=== PATIENT | male | born 1975 | race Caucasian/White ===

== ENCOUNTER 2017-03-04 00:32 | Inpatient (IN) | payer MEDICAID ==
[~2017-03-04] VITALS: Ht 177.8 cm; Wt 85.9 kg
[2017-03-04] MEDS ORDERED: LISI-661 PO (00:56)
[2017-03-04 01:17] LABS: BASOPHILS # (AUTO) 0.04 K/uL (0.00-0.20); BASOPHILS % (AUTO) 0.5 % (0.0-2.0); EOSINOPHILS % (AUTO) 1.07 % (1.0-6.0); HEMATOCRIT 45.4 % (41-53); HEMOGLOBIN 15.1 g/dL (13.5-17.5); LYMPHOCYTES # (AUTO) 2.8 K/uL (1.0-4.8); LYMPHOCYTES % (AUTO) 29.4 % (22.0-44.0); MEAN CORPUSCULAR HEMOGLOBIN 28.3 pg (26.0-34.0); MEAN CORPUSCULAR HGB CONC 33.3 G/dL (31.0-37.0); MEAN CORPUSCULAR VOLUME 85 fL (80-100); MONOCYTES # (AUTO) 0.7 K/uL (0.1-1.0); MONOCYTES % (AUTO) 7.1 % (2.0-9.0); NEUTROPHILS # (AUTO) 5.8 K/uL (1.8-7.7); PLATELET COUNT (AUTO) 378 K/uL (150-450); RED BLOOD CELL COUNT(AUTO) 5.35 MIL/uL (4.50-5.90); RED CELL DISTRIBUTION WIDTH 13.3 % (11.5-14.5); WHITE BLOOD COUNT (AUTO) 9.3 K/uL (4.5-11.0)
[2017-03-04 01:27] LABS: ANION GAP 7 mmol/L (8-16); CARBON DIOXIDE 29 mmol/L (22-29); CHLORIDE 100 mmol/L (98-107); CREATININE 1.31 mg/dL (0.60-1.30); GLOMERULAR FILTR. RATE CALC 60 mL/min (>60); POTASSIUM 3.7 mmol/L (3.5-5.1); SODIUM SERUM 136 mmol/L (136-145); UREA NITROGEN, BLOOD 12 mg/dL (7-18)
[2017-03-04 01:52] LABS: ALANINE AMINOTRANSFERASE 24 U/L (12-78); ALBUMIN 3.9 g/dL (3.4-5.0); ASPARTATE AMINOTRANSFERASE 18 U/L (15-37); BILIRUBIN,TOTAL 0.3 mg/dL (0.1-1.0); CREATINE KINASE MB 1.6 ng/mL (0-5); CREATINE KINASE, TOTAL 233 U/L (39-308); TOTAL PROTEIN, SERUM 7.5 g/dL (6.4-8.2)
[2017-03-04] MEDS ORDERED: ASPIRIN 325 MG TABLET PO ONE (04:15)
[2017-03-04] MEDS ORDERED: NITROGLYCERIN 0.4 MG SUBLINGUAL TABLET #25 SL ONE (04:15)
[2017-03-04] MEDS ORDERED: ONDANSETRON HCL 4 MG/2 ML VIAL IVP ONE (04:15)
[2017-03-04] MEDS ORDERED: NITROGLYCERIN 2% (1 GM=INCH) PACKET TP ONE ×2 (05:30→08:00)
[2017-03-04] MEDS ORDERED: 0.9% SODIUM CHLORIDE 10 ML SYRINGE IVP PRN (06:15)
[2017-03-04] MEDS ORDERED: ACETAMINOPHEN 325 MG TABLET PO PRN ×2 (06:15→16:30)
[2017-03-04] MEDS ORDERED: ONDANSETRON HCL 4 MG/2 ML VIAL IVP PRN ×2 (06:15→16:30)
[2017-03-04 08:11] VITALS: BP 137/88
[2017-03-04 11:11] VITALS: BP 131/77
[2017-03-04] MEDS ORDERED: PNEUMOCOCCAL VACCINE POLYVALENT 0.5 ML VIAL [PPSV23] IM ONE (12:15)
[2017-03-04] MEDS ORDERED: INFLUENZA VIRUS VACCINE QVS 2017-18 (3YR+)/PF 60 MCG/0.5 ML SYRINGE IM ONE (12:15)
[2017-03-04 15:13] VITALS: BP 122/67
[2017-03-04] MEDS ORDERED: IPRATROPIUM BROMIDE 0.5 MG/2.5 ML NEB SOLUTION NEB PRN (16:30)
[2017-03-04] MEDS ORDERED: MAGNESIUM HYDROXIDE SUSPENSION 30 ML UDCUP PO PRN (16:30)
[2017-03-04] MEDS ORDERED: HYDROCODONE/ACETAMINOPHEN 5-325 MG TABLET PO PRN (16:30)
[2017-03-04] MEDS ORDERED: ZOLPIDEM TARTRATE 10 MG TABLET PO PRN (16:30)
[2017-03-04] MEDS ORDERED: MORPHINE SULFATE 2 MG/ML SYRINGE IVP PRN (16:30)
[2017-03-04] MEDS: NITROGLYCERIN 2% (1 GM=INCH) PACKET TP SCH ×2 (17:41→23:21)
[2017-03-04 19:52] VITALS: BP 136/85
[2017-03-04] MEDS: DOCUSATE SODIUM 100 MG CAPSULE PO SCH (19:58)
[2017-03-04 23:22] VITALS: BP 126/90
[2017-03-05] VITALS (8 sets, daily range): BP systolic 114–155; BP diastolic 76–110
[2017-03-05] MEDS: NITROGLYCERIN 2% (1 GM=INCH) PACKET TP SCH ×2 (05:05→12:00)
[2017-03-05 07:00] LABS: CHOL/HDL RATIO 5.2 (4.2-7.3)
[2017-03-05] MEDS ORDERED: LISINOPRIL 10 MG TABLET PO SCH (09:00)
[2017-03-05] MEDS ORDERED: ASPIRIN 81 MG CHEWABLE TABLET PO SCH (09:00)
[2017-03-05] MEDS ORDERED: PANTOPRAZOLE SODIUM 40 MG/VIAL IVP SCH (09:00)
[2017-03-05] MEDS: DOCUSATE SODIUM 100 MG CAPSULE PO SCH (09:04)
[2017-03-05] MEDS ORDERED: LISI-662 PO (14:43)
[2017-03-06] MEDS ORDERED: LISINOPRIL 10 MG TABLET PO SCH (09:00)
== END 2017-03-05 17:20 | disposition home or self-care (01) | DRG 203 ==
LOC: EMS 00:34 → 5S 06:31
PROVIDERS: ADMIT Hospitalist; ATTEND Hospitalist
PROC: 3E0234Z Introduction of Serum, Toxoid and Vaccine into Muscle, Percutaneous Approach (ICD-10-PCS; principal; 2017-03-04)
DX: R07.9 Chest pain, unspecified (principal); I10 Essential (primary) hypertension; Z23 Encounter for immunization; E78.5 Hyperlipidemia, unspecified
CPT/HCPCS: 90471; 93005; 93017; 93306; 96374; 99285; C9113; J2405

== ENCOUNTER 2021-08-31 23:18 | Emergency (ER) | payer SELFPAY ==
[~2021-08-31] VITALS: Ht 177.8 cm; Wt 96.8 kg
[~2021-08-31 23:18] MED LIST: LISI-894 PO
[2021-09-01] MEDS ORDERED: PERTUSS(ACELL),DIPH,TET VAC/PF 0.5 ML SYRINGE IM. ONE (02:15)
[2021-09-01 02:25] VITALS: BP 150/110
== END 2021-09-01 03:49 | disposition home or self-care (01) ==
LOC: EMS 23:25
DX: I10 Essential (primary) hypertension (principal); G89.29 Other chronic pain; M54.2 Cervicalgia; E78.00 Pure hypercholesterolemia, unspecified; Z98.890 Other specified postprocedural states
CPT/HCPCS: 99283; Z7502

== ENCOUNTER 2023-06-07 22:53 | Inpatient (IN) | payer MEDICAID ==
[~2023-06-07] VITALS: Ht 175.3 cm; Wt 95.0 kg
[2023-06-08 00:09] LABS: BASOPHILS % (AUTO) 0.2 % (0.0-2.0); EOSINOPHILS % (AUTO) 0 % (1.0-6.0); HEMATOCRIT 45.5 % (41-53); HEMOGLOBIN 14.7 g/dL (13.5-17.5); LYMPHOCYTES # (AUTO) 1.4 K/uL (1.0-4.8); MEAN CORPUSCULAR HEMOGLOBIN 27.4 pg (26.0-34.0); MEAN CORPUSCULAR HGB CONC 32.4 G/dL (31.0-37.0); MEAN CORPUSCULAR VOLUME 85 fL (80-100); MONOCYTES # (AUTO) 1.2 K/uL (0.1-1.0); MONOCYTES % (AUTO) 5.1 % (2.0-9.0); NEUTROPHILS # (AUTO) 20.2 K/uL (1.8-7.7); PLATELET COUNT (AUTO) 425 K/uL (150-450); RED BLOOD CELL COUNT(AUTO) 5.38 MIL/uL (4.50-5.90); RED CELL DISTRIBUTION WIDTH 14.4 % (11.5-14.5); WHITE BLOOD COUNT (AUTO) 22.7 K/uL (4.5-11.0)
[2023-06-08 00:17] LABS: NEUTROPHILS % (AUTO) 88.7 % (40.0-70.0)
[2023-06-08 00:18] LABS: ANION GAP 12 mmol/L (8-16); CARBON DIOXIDE 26 mmol/L (22-29); CHLORIDE 102 mmol/L (98-107); CREATININE 1.15 mg/dL (0.60-1.30); GLOMERULAR FILTR. RATE CALC > 60 mL/min (>60); GLUCOSE,RANDOM 119 mg/dL (70-110); POTASSIUM 3.8 mmol/L (3.5-5.1); SODIUM SERUM 140 mmol/L (136-145); UREA NITROGEN, BLOOD 18 mg/dL (7-18)
[2023-06-08 00:24] LABS: ALANINE AMINOTRANSFERASE 27 U/L (12-78); ALBUMIN 4.5 g/dL (3.4-5.0); ALKALINE PHOSPHATASE 86 U/L (46-116); ASPARTATE AMINOTRANSFERASE 20 U/L (15-37); BILIRUBIN,TOTAL 0.2 mg/dL (0.1-1.0); LIPASE 47 U/L (16-77); TOTAL PROTEIN, SERUM 8.4 g/dL (6.4-8.2)
[2023-06-08] MEDS ORDERED: ONDANSETRON HCL 4 MG/2 ML VIAL IVP ONE (00:30)
[2023-06-08] MEDS ORDERED: SODIUM CHLORIDE 0.9% 1,000 ML IV ONE ×2 (00:30→11:45)
[2023-06-08 00:38] LABS: ALCOHOL, BLOOD (SERUM) < 3 mg/dL (0-10)
[2023-06-08] MEDS ORDERED: KETOROLAC TROMETHAMINE 30 MG/ML VIAL IVP ONE (00:45)
[2023-06-08 01:20] LABS: COVID AG,FIA SOURCE NASAL SWAB
[2023-06-08] MEDS ORDERED: IOHEXOL 350 MG/ML 100 ML VIAL ONE (01:28)
[2023-06-08] MEDS ORDERED: SODIUM CHLORIDE 0.9% 100 ML ONE (01:28)
[2023-06-08 01:40] LABS: LACTIC ACID 1.7 mmol/L (0.4-2.0)
[2023-06-08 01:45] LABS: INFLUENZA TYPE A NEGATIVE FOR TYPE A (NEGATIVE); INFLUENZA TYPE B NEGATIVE FOR TYPE B (NEGATIVE); SARS-COV2 (COVID) ANTIGEN,FIA Negative (Negative)
[2023-06-08] MEDS ORDERED: PIPERACILLIN/TAZO 3.375 GM/D5W 50 ML IV ONE (04:00)
[2023-06-08] MEDS ORDERED: SODIUM CHLORIDE 0.9% 2,850 ML IV ONE (04:15)
[2023-06-08 05:39] LABS: APPEARANCE,URINE CLEAR (CLEAR); BILIRUBIN,URINE NEGATIVE (NEGATIVE); COLOR,URINE LIGHT YELLOW (YELLOW); GLUCOSE, URINE (UA) NEGATIVE (NEGATIVE); KETONES,URINE NEGATIVE (NEGATIVE); LEUKOCYTE ESTERASE ,URINE NEGATIVE (NEGATIVE); NITRATE,URINE NEGATIVE (NEGATIVE); OCCULT BLOOD,URINE TRACE (NEGATIVE); PH,URINE 5.5 (5.0-8.0); PROTEIN,URINE TRACE mg/dL (NEGATIVE); UROBILINOGEN,URINE <=1.0 mg/dL (<=1.0)
[2023-06-08 06:11] LABS: BACTERIA,URINE None Seen /HPF (None Seen); RBC,URINE 0-2 /HPF (0-2); SQUAMOUS EPITHELIAL CELL,UR None Seen /LPF (None Seen); WBC,URINE None Seen /HPF (0-5)
[2023-06-08] MEDS ORDERED: ACETAMINOPHEN 325 MG TABLET PO PRN ×2 (08:45→11:45)
[2023-06-08] MEDS ORDERED: 0.9% SODIUM CHLORIDE 10 ML SYRINGE IVP PRN (08:45)
[2023-06-08] MEDS ORDERED: ONDANSETRON HCL 4 MG/2 ML VIAL IVP PRN ×2 (08:45→11:45)
[2023-06-08 09:00] VITALS: BP 144/67; PULSE 78; RESP 20; TEMP 98
[2023-06-08] MEDS ORDERED: IOHEXOL 240 MG/ML 20 ML VIAL ONE (09:25)
[2023-06-08] MEDS ORDERED: SODIUM CL IRRIG SOLN BAG 3,000 ML IRRIG ONE ×2 (09:25→09:28)
[2023-06-08 09:49] VITALS: BP 144/67; PULSE 78; RESP 20; TEMP 98; O2SAT 99
[2023-06-08] MEDS ORDERED: CeFAZolin SODIUM 1 GM VIAL IM ONE (10:15)
[2023-06-08] MEDS ORDERED: FentaNYL CITRATE PF 100 MCG/2 ML VIAL IVP PRN (10:45)
[2023-06-08] MEDS ORDERED: CeFAZolin 2 GM/DEXTROSE 50 ML IV ONE (11:00)
[2023-06-08] MEDS ORDERED: HYDROCODONE/ACETAMINOPHEN 5-325 MG TABLET PO PRN ×3 (11:30→11:45)
[2023-06-08] MEDS ORDERED: ZOLPIDEM TARTRATE 5 MG TABLET PO PRN (11:45)
[2023-06-08] MEDS ORDERED: MORPHINE SULFATE 2 MG/ML SYRINGE IVP PRN (11:45)
[2023-06-08] MEDS ORDERED: MAGNESIUM HYDROXIDE SUSPENSION 30 ML UDCUP PO PRN (11:45)
[2023-06-08] MEDS ORDERED: BISACODYL 10 MG RECTAL RECTAL SUPPOSITORY PR PRN (11:45)
[2023-06-08] MEDS: TAMSULOSIN HCL 0.4 MG CAPSULE PO SCH (12:44)
[2023-06-08] MEDS: IBUPROFEN 600 MG TABLET PO SCH ×3 (12:44→23:49)
[2023-06-08] MEDS: OXYBUTYNIN CHLORIDE 5 MG ER TABLET PO SCH (12:45)
[2023-06-08] MEDS ORDERED: MAG HYDROX/ALUMINUM HYD/SIMETH 30 ML SUSPENSION UDCUP PO PRN (15:30)
[2023-06-08] MEDS: PHENAZOPYRIDINE HCL 200 MG TABLET PO SCH ×2 (16:49→20:36)
[2023-06-08] MEDS: HEPARIN SODIUM,PORCINE 5,000 UNITS/ML VIAL SQ SCH ×2 (16:50→23:49)
[2023-06-08 16:53] VITALS: BP 133/93; PULSE 90; RESP 20; TEMP 98
[2023-06-08] MEDS: OXYGEN THERAPY IH SCH (20:00)
[2023-06-08 20:14] VITALS: BP 133/84; PULSE 99; RESP 20; TEMP 98.5
[2023-06-08] MEDS: DOCUSATE SODIUM 100 MG CAPSULE PO SCH (20:36)
[2023-06-08] MEDS: CeFAZolin 1 GM/DEXTROSE 50 ML IV SCH (21:53)
[2023-06-09] MEDS ORDERED: INFLUENZA VIRUS VACCINE QVS 2023-24 (6MO+)/PF 60 MCG/0.5 ML SYRINGE IM. ONE (01:45)
[2023-06-09] MEDS ORDERED: PNEUMOCOCCAL VACCINE POLYVALENT 0.5 ML SYRINGE [PPSV23] IM. ONE (01:45)
[2023-06-09 05:17] VITALS: BP 130/79; PULSE 75; RESP 20; TEMP 97.8
[2023-06-09] MEDS: IBUPROFEN 600 MG TABLET PO SCH ×4 (05:49→23:42)
[2023-06-09 07:00] LABS: BASOPHILS % (AUTO) 0.2 % (0.0-2.0); EOSINOPHILS % (AUTO) 0.1 % (1.0-6.0); HEMATOCRIT 35.2 % (41-53); HEMOGLOBIN 12.2 g/dL (13.5-17.5); LYMPHOCYTES # (AUTO) 2.2 K/uL (1.0-4.8); MEAN CORPUSCULAR HEMOGLOBIN 29.1 pg (26.0-34.0); MEAN CORPUSCULAR HGB CONC 34.6 G/dL (31.0-37.0); MEAN CORPUSCULAR VOLUME 84 fL (80-100); MONOCYTES # (AUTO) 0.6 K/uL (0.1-1.0); MONOCYTES % (AUTO) 6.5 % (2.0-9.0); NEUTROPHILS # (AUTO) 6.1 K/uL (1.8-7.7); NEUTROPHILS % (AUTO) 68.2 % (40.0-70.0); PLATELET COUNT (AUTO) 334 K/uL (150-450); RED BLOOD CELL COUNT(AUTO) 4.18 MIL/uL (4.50-5.90); RED CELL DISTRIBUTION WIDTH 13.9 % (11.5-14.5)
[2023-06-09] MEDS ORDERED: FentaNYL CITRATE PF 100 MCG/2 ML VIAL IVP ONE (07:17)
[2023-06-09 07:23] LABS: ALANINE AMINOTRANSFERASE 18 U/L (12-78); ALBUMIN 3.2 g/dL (3.4-5.0); ALKALINE PHOSPHATASE 66 U/L (46-116); ANION GAP 9 mmol/L (8-16); ASPARTATE AMINOTRANSFERASE 16 U/L (15-37); BILIRUBIN,TOTAL 0.3 mg/dL (0.1-1.0); CALCIUM, TOTAL 8.2 mg/dL (8.8-10.5); CARBON DIOXIDE 26 mmol/L (22-29); CHLORIDE 105 mmol/L (98-107); CREATININE 0.99 mg/dL (0.60-1.30); GLOMERULAR FILTR. RATE CALC > 60 mL/min (>60); GLUCOSE,RANDOM 111 mg/dL (70-110); POTASSIUM 3.9 mmol/L (3.5-5.1); SODIUM SERUM 140 mmol/L (136-145); TOTAL PROTEIN, SERUM 6.3 g/dL (6.4-8.2); UREA NITROGEN, BLOOD 11 mg/dL (7-18)
[2023-06-09] MEDS: HEPARIN SODIUM,PORCINE 5,000 UNITS/ML VIAL SQ SCH ×3 (08:00→23:42)
[2023-06-09] MEDS: OXYGEN THERAPY IH SCH ×2 (08:00→20:00)
[2023-06-09] MEDS: PHENAZOPYRIDINE HCL 200 MG TABLET PO SCH ×3 (09:08→20:15)
[2023-06-09] MEDS: TAMSULOSIN HCL 0.4 MG CAPSULE PO SCH (09:08)
[2023-06-09] MEDS: DOCUSATE SODIUM 100 MG CAPSULE PO SCH ×2 (09:08→20:16)
[2023-06-09] MEDS: OXYBUTYNIN CHLORIDE 5 MG ER TABLET PO SCH (09:08)
[2023-06-09] MEDS: LISINOPRIL 20 MG TABLET PO SCH (09:09)
[2023-06-09] MEDS: PANTOPRAZOLE SODIUM 40 MG DR TABLET PO SCH (09:09)
[2023-06-09 09:15] VITALS: BP 118/76; PULSE 68; RESP 20; TEMP 98.3
[2023-06-09] MEDS: CeFAZolin 1 GM/DEXTROSE 50 ML IV SCH ×2 (09:45→21:28)
[2023-06-09 15:42] VITALS: BP 111/66; PULSE 71; RESP 20; TEMP 98
[2023-06-09] MEDS ORDERED: PROPOFOL 1% 20 ML VIAL IVP ONE (17:35)
[2023-06-09] MEDS ORDERED: LIDOCAINE 4% 50 ML SOLUTION ONE (17:35)
[2023-06-09] MEDS ORDERED: ONDANSETRON HCL 4 MG/2 ML VIAL ONE (17:35)
[2023-06-09] MEDS ORDERED: CeFAZolin 1 GM/DEXTROSE 50 ML BAG IV ONE (17:35)
[2023-06-09] MEDS ORDERED: SUGAMMADEX SODIUM 200 MG/2 ML VIAL IVP ONE (17:35)
[2023-06-09] MEDS ORDERED: ROCURONIUM BROMIDE 10 MG/ML 5 ML VIAL ONE (17:35)
[2023-06-09 19:24] VITALS: BP 129/74; PULSE 79; RESP 20; TEMP 98.1
[2023-06-10 03:07] LABS: HEPATITIS C AB (EIA) Non Reactive (Non Reactive)
[2023-06-10 04:19] VITALS: BP 122/86; PULSE 72; RESP 20; TEMP 98.5
[2023-06-10] MEDS: IBUPROFEN 600 MG TABLET PO SCH ×2 (05:50→11:23)
[2023-06-10 07:47] VITALS: BP 129/84; PULSE 73; RESP 19; TEMP 98.1
[2023-06-10] MEDS: PHENAZOPYRIDINE HCL 200 MG TABLET PO SCH (08:06)
[2023-06-10] MEDS: OXYBUTYNIN CHLORIDE 5 MG ER TABLET PO SCH (08:07)
[2023-06-10] MEDS: DOCUSATE SODIUM 100 MG CAPSULE PO SCH (08:07)
[2023-06-10] MEDS: TAMSULOSIN HCL 0.4 MG CAPSULE PO SCH (08:07)
[2023-06-10] MEDS: LISINOPRIL 20 MG TABLET PO SCH (08:07)
[2023-06-10] MEDS: PANTOPRAZOLE SODIUM 40 MG DR TABLET PO SCH (08:07)
[2023-06-10] MEDS: HEPARIN SODIUM,PORCINE 5,000 UNITS/ML VIAL SQ SCH (08:07)
[2023-06-10] MEDS: CeFAZolin 1 GM/DEXTROSE 50 ML IV SCH (10:24)
[2023-06-10] MEDS ORDERED: OXYB-34 PO (10:26)
[2023-06-10] MEDS ORDERED: PHEN-948 PO (10:26)
[2023-06-10] MEDS ORDERED: TAMS0.4C94 PO (10:26)
[2023-06-10] MEDS ORDERED: CEPH-558 PO (10:27)
== END 2023-06-10 16:31 | disposition home or self-care (01) | DRG 720 ==
LOC: EMS 22:57 → 6N 06-08 08:48
PROVIDERS: ADMIT Internal Medicine; ATTEND Internal Medicine
PROC: BT1D1ZZ Fluoroscopy of Right Kidney, Ureter and Bladder using Low Osmolar Contrast (ICD-10-PCS; 2023-06-08)
PROC: 0T768DZ Dilation of Right Ureter with Intraluminal Device, Via Natural or Artificial Opening Endoscopic (ICD-10-PCS; principal; 2023-06-08 09:30)
DX: A41.9 Sepsis, unspecified organism (principal); N13.6 Pyonephrosis; E78.00 Pure hypercholesterolemia, unspecified; I10 Essential (primary) hypertension; Z20.822 Contact with and (suspected) exposure to COVID-19; Z79.899 Other long term (current) drug therapy
CPT/HCPCS: 71045; 74177; 76700; 80053; 81001; 83605; 83690; 85025; 86803; 87040; 87081; 87086; 87186; 87340; 87804; 93005; 99291; G0480; J0690; J1644; J1885; J2405; J2543; J2704; J3010; J3490; J7030; J7050; Q9966; Q9967; 36415-L1; 36415-TC; Z7610

== ENCOUNTER 2023-06-24 10:46 | Emergency (ER) | payer MEDICAID ==
[~2023-06-24] VITALS: Ht 180.3 cm; Wt 90.9 kg
[~2023-06-24 10:46] MED LIST changes: +CEPH-558 PO; +OXYB-34 PO; +PHEN-948 PO; +TAMS0.4C94 PO
[2023-06-24 10:49] VITALS: TEMP 97.9
[2023-06-24] MEDS ORDERED: OMEP20 PO (10:54)
[2023-06-24] MEDS ORDERED: PRAV20TA4 PO (10:54)
[2023-06-24 11:43] LABS: BASOPHILS % (AUTO) 0.9 % (0.0-2.0); EOSINOPHILS % (AUTO) 1.3 % (1.0-6.0); HEMOGLOBIN 13.9 g/dL (13.5-17.5); LYMPHOCYTES # (AUTO) 2.7 K/uL (1.0-4.8); LYMPHOCYTES % (AUTO) 24.5 % (22.0-44.0); MEAN CORPUSCULAR HEMOGLOBIN 27.3 pg (26.0-34.0); MEAN CORPUSCULAR HGB CONC 32.3 G/dL (31.0-37.0); MEAN CORPUSCULAR VOLUME 85 fL (80-100); MONOCYTES # (AUTO) 0.5 K/uL (0.1-1.0); MONOCYTES % (AUTO) 4.9 % (2.0-9.0); NEUTROPHILS # (AUTO) 7.6 K/uL (1.8-7.7); NEUTROPHILS % (AUTO) 68.4 % (40.0-70.0); PLATELET COUNT (AUTO) 478 K/uL (150-450); RED BLOOD CELL COUNT(AUTO) 5.09 MIL/uL (4.50-5.90); RED CELL DISTRIBUTION WIDTH 14.2 % (11.5-14.5); WHITE BLOOD COUNT (AUTO) 11.1 K/uL (4.5-11.0)
[2023-06-24 11:57] LABS: APPEARANCE,URINE CLEAR (CLEAR); BILIRUBIN,URINE NEGATIVE (NEGATIVE); COLOR,URINE LIGHT BROWN (YELLOW); GLUCOSE, URINE (UA) NEGATIVE (NEGATIVE); KETONES,URINE NEGATIVE (NEGATIVE); LEUKOCYTE ESTERASE ,URINE MODERATE (NEGATIVE); NITRATE,URINE NEGATIVE (NEGATIVE); OCCULT BLOOD,URINE LARGE (NEGATIVE); PROTEIN,URINE 30-70 mg/dL (NEGATIVE); SPECIFIC GRAVITIY, URINE 1.007 (1.003-1.030); UROBILINOGEN,URINE <=1.0 mg/dL (<=1.0)
[2023-06-24 11:59] LABS: ANION GAP 10 mmol/L (8-16); CALCIUM, TOTAL 8.7 mg/dL (8.8-10.5); CARBON DIOXIDE 27 mmol/L (22-29); CHLORIDE 99 mmol/L (98-107); GLOMERULAR FILTR. RATE CALC > 60 mL/min (>60); GLUCOSE,RANDOM 94 mg/dL (70-110); POTASSIUM 3.4 mmol/L (3.5-5.1); SODIUM SERUM 136 mmol/L (136-145); UREA NITROGEN, BLOOD 20 mg/dL (7-18)
[2023-06-24 12:02] LABS: ALANINE AMINOTRANSFERASE 22 U/L (12-78); ALBUMIN 4.1 g/dL (3.4-5.0); ALKALINE PHOSPHATASE 81 U/L (46-116); ASPARTATE AMINOTRANSFERASE 16 U/L (15-37); BILIRUBIN,TOTAL 0.2 mg/dL (0.1-1.0); TOTAL PROTEIN, SERUM 7.6 g/dL (6.4-8.2)
[2023-06-24 12:19] LABS: BACTERIA,URINE Few /HPF (None Seen); SQUAMOUS EPITHELIAL CELL,UR Few /LPF (None Seen)
[2023-06-24] MEDS ORDERED: CEPHALEXIN MONOHYDRATE 500 MG CAPSULE PO ONE (13:00)
[2023-06-24] MEDS ORDERED: SODIUM CHLORIDE 0.9% 1,000 ML IV ONE (13:30)
[2023-06-24 17:27] VITALS: BP 132/87; PULSE 88; RESP 18
== END 2023-06-24 17:28 | disposition home or self-care (01) ==
LOC: EMS 10:55
DX: N20.0 Calculus of kidney (principal); R31.9 Hematuria, unspecified; E78.00 Pure hypercholesterolemia, unspecified; I10 Essential (primary) hypertension; Z98.890 Other specified postprocedural states
CPT/HCPCS: 99284; 74176; 96360; 80053; 81001; 85025; 36415; 87086; 87186; J7030